=== PATIENT | female | born 1985 | race Caucasian/White ===

== ENCOUNTER → 2021-09-25 | Outpatient (CLI) | payer SELFPAY ==
[~2021-09-25] MED LIST: ACHD5005 PO; DOCU100C37 PO; DOCU100T7 PO; FERR-47 PO; FERR-57 PO; FERR325C PO; FERR325T18 PO; HYDR-3714 PO; HYDR-707 PO; IBP600T1 PO; IBUP-1773 PO; IBUP-844 PO; OXYC1TAB11 PO; PREN-102 PO; PREN-115 PO; PRM25T PO; YAZ
--- NOTE | 2021-09-25 16:36 | Diagnostic Imaging Report ---
PROCEDURE: US OB single fetus <14 wks. TECHNIQUE: Multiple real-time grayscale images were obtained over the gravid uterus in various projections. INDICATION: Uncertain dates. FINDINGS: There is a single live IUP measuring approximately 12 weeks 0 days gestational age. heart rate was recorded at 170 bpm. No savana-gestational sac hemorrhage is detected. Adnexal evaluation demonstrates the right and left ovaries to be unremarkable. There is no adnexal mass or free fluid. IMPRESSION: Single live IUP 12 weeks 0 days gestational age. Estimated date of confinement sonographically is 04/09/2022. Dictated by: Dictated on workstation # [id number]
== END ==
LOC: RAD 13:45
PROVIDERS: ATTEND Obstetrics & Gynecology
DX: Z34.81 Encounter for supervision of other normal pregnancy, first trimester (principal); Z3A.12 12 weeks gestation of pregnancy
CPT/HCPCS: 76801

== ENCOUNTER 2022-03-20 05:32 | Outpatient (CLI) | payer MEDICAID ==
[~2022-03-20] VITALS: Ht 162 cm; Wt 83.6 kg
== END 2022-03-20 14:29 | disposition home or self-care (01) ==
LOC: PREOP 05:32
PROVIDERS: ATTEND Obstetrics & Gynecology
DX: Z01.818 Encounter for other preprocedural examination (principal)

== ENCOUNTER 2022-03-27 05:21 | Inpatient (IN) | payer MEDICAID ==
[2022-03-27] VITALS (9 sets, daily range): BP systolic 97–117; BP diastolic 55–67
[~2022-03-27] VITALS: Ht 162.6 cm; Wt 85.2 kg
[2022-03-27] MEDS ORDERED: CLINDAMYCIN 900 MG/50 ML IVPB 50 ML IV ONE (05:45)
[2022-03-27] MEDS ORDERED: CITRIC ACID/SOB CIT (BICITRA) 30 ML UDC PO ONE (05:45)
[2022-03-27] MEDS ORDERED: LACTATED RINGERS 1,000 ML IV PRN ×2 (05:45)
[2022-03-27] MEDS ORDERED: FAMOTIDINE 20MG/2ML IV (PEPCID) IV ONE (05:45)
[2022-03-27] MEDS ORDERED: METOCLOPRAMIDE INJ 10 MG/2 ML (REGLAN) IV ONE (05:45)
[2022-03-27 05:51] LABS: BASOPHILS % (AUTO) 0 % (0-10); EOSINOPHILS # (AUTO) 0.1 10^3/uL (0.0-0.3); EOSINOPHILS % (AUTO) 1 % (0-10); HEMATOCRIT 35 % (35-52); HEMOGLOBIN 11.9 g/dL (11.5-16.0); LYMPHOCYTES # (AUTO) 1.6 10^3/uL (1.0-4.0); LYMPHOCYTES % (AUTO) 16 % (12-44); MEAN CORPUSCULAR HEMOGLOBIN 33 pg (25-34); MEAN CORPUSCULAR HGB CONC 34 g/dL (32-36); MEAN CORPUSCULAR VOLUME 95 fL (80-99); MONOCYTES # (AUTO) 0.8 10^3/uL (0.0-1.0); MONOCYTES % (AUTO) 8 % (0-12); NEUTROPHILS # (AUTO) 7.2 10^3/uL (1.8-7.8); NEUTROPHILS % (AUTO) 74 % (42-75); PLATELET COUNT 194 10^3/uL (130-400); WHITE BLOOD COUNT 9.8 10^3/uL (4.3-11.0)
[2022-03-27] MEDS ORDERED: fentaNYL INJ 100 MCG/2 ML AMP ONE (07:04)
[2022-03-27] MEDS ORDERED: OXYTOCIN PRE-MIX DRIP 1,000 ML IV ONE (07:04)
[2022-03-27] MEDS ORDERED: D5 LR IV SOLUTION 1,000 ML IV SCH ×2 (07:15→08:30)
[2022-03-27] MEDS ORDERED: BUPIVACAINE 0.5% 30 ML (SENSORCAINE) VIAL ONE (07:54)
[2022-03-27] MEDS: OXYTOCIN PRE-MIX DRIP 500 ML IV SCH ×2 (08:00→10:57)
[2022-03-27] MEDS ORDERED: PHENYLEPHRINE 100 MCG/ML 10 ML (ANESTHESIA) SYR ONE (08:04)
[2022-03-27] MEDS ORDERED: ONDANSETRON 4 MG/2 ML (SDV) Z0FRAN IVP PRN (08:30)
[2022-03-27] MEDS ORDERED: TETANUS,DIPTH,PERTUSS P/F (BOOSTRIX) 0.5 ML VIAL IM ONE (08:30)
[2022-03-27] MEDS ORDERED: fentaNYL INJ 100 MCG/2 ML AMP IVP PRN (08:30)
--- NOTE | 2022-03-27 08:33 | History & Physical ---
History and Physical Date Seen by Provider: Mar 27, 2022 Time Seen by Provider: 07:00 This patient is a 37-year-old currently at 37-4/7 weeks gestation with a history of 4 previous C-sections. Recent ultrasound demonstrated an exceedingly thin anterior lower uterine segment appearing to be comprised only of memb ranes and peritoneum. There seem to be an increased amount of peritoneal fluid. Biophysical profile was 8/8. Patient also has polyhydramnios with an ISABELLA of over 250. She is admitted now for repeat delivery. Her GBS culture was negative. She has had some increases in her blood pressure through the last 6 weeks. She has not required blood pressure medication. Patient denies rupture membranes or bleeding. Allergies are to fish products which makes her nauseated and penicillins which cause reactions when she was a child and she does not know what that reaction was Medications are vitamins Medical social and surgical history is are per the antepartum record HEENT exam is normal Neck is supple no lymphadenopathy no thyromegaly Abdomen is gravid soft nontender nondistended Extremities show no clubbing cyanosis. There is no Homans' sign. Pelvic exam is deferred monitor shows a category 1 heart rate tracing with occasional contractions Laboratory Tests Test 03/27/22 05:40 Range/Units White Blood Count 9.8 4.3-11.0 10^3/uL Red Blood Count 3.63 L 3.80-5.11 10^6/uL Hemoglobin 11.9 11.5-16.0 g/dL Hematocrit 35 35-52 % Mean Corpuscular Volume 95 80-99 fL Mean Corpuscular Hemoglobin 33 25-34 pg Mean Corpuscular Hemoglobin Concent 34 32-36 g/dL Red Cell Distribution Width 12.9 10.0-14.5 % Platelet Count 194 130-400 10^3/uL Mean Platelet Volume 10.0 9.0-12.2 fL Immature Granulocyte % (Auto) 1 % Neutrophils (%) (Auto) 74 42-75 % Lymphocytes (%) (Auto) 16 12-44 % Monocytes (%) (Auto) 8 0-12 % Eosinophils (%) (Auto) 1 0-10 % Basophils (%) (Auto) 0 0-10 % Neutrophils # (Auto) 7.2 1.8-7.8 10^3/uL Lymphocytes # (Auto) 1.6 1.0-4.0 10^3/uL Monocytes # (Auto) 0.8 0.0-1.0 10^3/uL Eosinophils # (Auto) 0.1 0.0-0.3 10^3/uL Basophils # (Auto) 0.0 0.0-0.1 10^3/uL Immature Granulocyte # (Auto) 0.1 0.0-0.1 10^3/uL Hemoglobin and platelet count are normal Assessment and plan 37+ weeks gestation and the patient with an exceedingly thin lower uterine segment with 4 previous C-sections. She also has polyhydramnios which is concerning and she has tendency towards PIH now as well. Patient is admitted now for repeat delivery 37 weeks with previous C-sections polyhydramnios and uterine scar compromise Allergies and Home Medications Allergies Coded Allergies: Fish Containing Products (Unverified Allergy, Mild, 09/26/21) Penicillins (Unverified Allergy, Mild, 09/26/21) Patient Home Medication List Home Medication List Reviewed: Yes Vits #93/Iron Fum/FA ( Formula Tablet) 1 Each Tablet, 1 EACH PO DAILY, (Reported) Entered as Reported by: DYLAN BA on 04/27/18 1135 Discontinued Medications Docusate Sodium (Docusate Sodium) 100 Mg Capsule, 100 MG PO BID Discontinued Reason: No Longer Taking Prescribed by: ANUM REED on 05/06/18 1016 Ferrous Sulfate (Ferrous Sulfate) 325 Mg Tablet, 325 MG PO DAILY Discontinued Reason: No Longer Taking Prescribed by: ANUM REED on 05/06/18 1016 Ibuprofen (Ibu) 600 Mg Tablet, 600 MG PO Q6H Discontinued Reason: No Longer Taking Prescribed by: ANUM REED on 05/06/18 1016 Oxycodone HCl/Acetaminophen (Oxycodone-Acetaminophen 5-325) 1 Each Tablet, 1-2 TAB PO Q4H PRN for PAIN-MODERATE Discontinued Reason: No Longer Taking Prescribed by: ANUM REED on 05/06/18 1016 HERON JULIAN MD Mar 27, 2022 08:32
--- NOTE | 2022-03-27 08:34 | Discharge Inst-Surgical ---
Discharge Inst-Surgical Depart Medication/Instructions New, Converted or Re-Newed RX: Transmitted to Pharmacy Consults/Follow Up Patient Instructions: As directed Orders & Referrals Follow Up Appt: RTC 1 week for incision check. Call to make follow up appt. for patient in 4 weeks. Wound Care: Remove ashok, apply benzoin and steri strips. Activity Per routine post instructions. Prescriptions for Percocet Motrin and Colace have been sent to patient's pharmacy from my office Diet as tolerated Patient may shower or tub bathe as desired. Continue home meds Activity Activity as Tolerated: No Diet Discharge Diet: No Restrictions HERON JULIAN MD Mar 27, 2022 08:34
[2022-03-27] MEDS: KETOROLAC 30 MG/ML VIAL IVP SCH ×3 (08:44→20:54)
[2022-03-27] MEDS ORDERED: KETOROLAC 30 MG/ML VIAL ONE (08:44)
[2022-03-27] MEDS ORDERED: DOCUSATE SODIUM 100 MG (COLACE) CAP PO SCH (09:00)
[2022-03-27] MEDS: DOCUSATE SODIUM 100 MG (COLACE) CAP PO SCH ×2 (09:00→20:55)
[2022-03-27] MEDS: oxyCODONE/APAP 10/325MG (PERCOCET 10) TABLET PO PRN ×2 (14:58→19:39)
[2022-03-27] MEDS ORDERED: SIMETHICONE 80 MG (MYLICON) CHEW ONE (20:47)
[2022-03-27] MEDS: CATHETER FLUSH 10 ML SYR IV PRN (20:55)
[2022-03-27] MEDS ORDERED: SIMETHICONE 80 MG (MYLICON) CHEW PO SCH (21:00)
[2022-03-28 00:25] VITALS: BP 112/62
[2022-03-28] MEDS: oxyCODONE/APAP 10/325MG (PERCOCET 10) TABLET PO PRN ×3 (00:25→17:11)
[2022-03-28] MEDS: KETOROLAC 30 MG/ML VIAL IVP SCH (02:34)
[2022-03-28] MEDS: CATHETER FLUSH 10 ML SYR IV PRN (02:34)
[2022-03-28 04:30] VITALS: BP 108/59
[2022-03-28] MEDS: DOCUSATE SODIUM 100 MG (COLACE) CAP PO SCH (08:09)
[2022-03-28 08:10] VITALS: BP 109/62
--- NOTE | 2022-03-28 10:19 | Anesthesia-Regional Post-Op ---
Regional Patient Condition Mental Status: Alert, Oriented x3 Circulation: Same as Pre-Op Headache: Absent Sensation: Full Recovery Motor Block: Absent Post Op Complications Complications None Follow Up Care/Instructions Patient Instructions None needed. Anesthesia/Patient Condition Patient is doing well, no complaints, stable vital signs, no apparent adverse anesthesia problems. No complications reported per nursing. AMPARO PARSON CRNA Mar 28, 2022 10:19
--- NOTE | 2022-03-28 10:26 | Progress Note ---
Standard Progress Note Progress Notes/Assess & Plan Date Seen by a Provider: Mar 28, 2022 Time Seen by a Provider: 10:25 Progress/Assessment & Plan This patient is without complaint. She is ambulating, voiding, tolerating oral intake well and has good pain control. Patient denies nausea vomiting denies headache denies shortness of breath and denies chest pain. Vital Signs Date Time Temp Pulse Resp B/P (MAP) Pulse Ox O2 Delivery O2 Flow Rate FiO2 03/28/22 08:10 36.7 99 16 109/62 (78) Room Air 03/28/22 04:30 36.0 88 16 108/59 (75) 97 Room Air 03/28/22 00:25 36.1 92 16 112/62 (79) 96 Room Air 03/27/22 20:55 36.1 110 16 117/67 (84) 96 Room Air 03/27/22 16:15 36.3 83 16 110/55 (73) 95 Room Air 03/27/22 15:08 Room Air 03/27/22 12:09 36.5 87 18 101/55 (70) 98 Room Air I & O 03/28/22 07:00 Intake Total 5150 ml Output Total 4325 ml Balance 825 ml Vital signs are stable. Patient is afebrile. The abdomen is benign. Extremities show no clubbing cyanosis. There is no Homans' sign. Pelvic exam is deferred Assessment and plan Postoperative day #1 status post repeat delivery at 37+ weeks gestation. Patient is doing well and is requesting discharge home we will allow discharge home this afternoon. Patient will have follow-up in clinic Final Diagnosis 37-week repeat delivery HERON JULIAN MD Mar 28, 2022 10:26
[2022-03-28] MEDS ORDERED: IBUPROFEN 800 MG (MOTRIN) TAB PO SCH (12:00)
[2022-03-28 17:11] VITALS: BP 113/67
--- NOTE | 2022-04-13 11:23 | OPERATIVE REPORT ---
DATE OF SERVICE: 03/27/2022 PREOPERATIVE DIAGNOSES: A 37 plus week with polyhydramnios and uterine scar separation from prior . POSTOPERATIVE DIAGNOSES: A 37 plus week with polyhydramnios and uterine scar separation from prior . OPERATIVE PROCEDURE: Repeat low transverse delivery of a viable male with Apgars of 8 and 9 at 1 and 5 minutes respectively, weight of 7 pounds 1 ounce, time of 0739. OPERATIVE DESCRIPTION: With the patient in supine position under satisfactory spinal analgesia, she was prepped and draped in the usual fashion for abdominal surgery. Woods catheter was placed in the urinary bladder. Repeat Pfannenstiel incision made through skin with scalpel, the patient's abdomen was entered in the usual manner. Bladder retractor placed in position, clean scalpel used to make a 4 cm hysterotomy incision transversely across the lower uterine segment. That incision was extended bluntly. The was in a transverse lie with the backup. Both feet were grasped, and breech extraction was performed without difficulty. The infant was bulb suctioned on delivery, the umbilical cord was doubly clamped. The passed to the pediatric nurse in attendance for the delivery. Cord bloods were obtained. Placenta delivered spontaneously Glass. It was normal with a 3-vessel cord. The uterus was exteriorized and interior wiped clean with wet laparotomy sponge. Uterine incision closed with running locked suture of 2-0 Vicryl. Hemostasis was complete. The uterus was returned to abdominal cavity. All blood clot and debris removed from the abdominal cavity. With sponge and needle counts correct and hemostasis now assured, the anterior parietal peritoneum was closed with running suture of 2-0 Vicryl. Rectus muscles were closed with 2-0 Vicryl. Rectus fascia was closed with 2-0 Vicryl, subcutaneous tissue was closed with 2-0 Vicryl and the skin was stapled. Sponge and needle counts were correct on completion of procedure. Blood loss was around 500 mL. The patient tolerated the procedure well and was transferred to the recovery room in stable condition. The infant had remained with the mom. Job ID: [id number] DocumentID: [id number] Dictated Date: 04/13/2022 08:00:37 Box Order Person Date: 04/13/2022 11:22:16 Dictated By: HERON JULIAN MD
== END 2022-03-28 18:30 | disposition home or self-care (01) | DRG 788 ==
LOC: LDRP 05:21
PROVIDERS: ADMIT Obstetrics & Gynecology; ATTEND Obstetrics & Gynecology
PROC: 10D00Z1 Extraction of Products of Conception, Low, Open Approach (ICD-10-PCS; principal; 2022-03-27 07:16)
DX: O34.211 Maternal care for low transverse scar from previous cesarean delivery (principal); Z3A.37 37 weeks gestation of pregnancy; Z37.0 Single live birth; O40.3XX0 Polyhydramnios, third trimester, not applicable or unspecified; O13.4 Gestational [pregnancy-induced] hypertension without significant proteinuria, complicating childbirth
CPT/HCPCS: 36415; 85025; 86850; 86900; 86901; 88307; 94664